=== PATIENT | female | born 2000 | race Caucasian/White ===

== ENCOUNTER 2024-05-28 18:30 | Outpatient (CLI) | payer OTHER ==
[2024-05-28 20:29] VITALS: BP 121/77; PULSE 86; RESP 16; TEMP 99.4
--- NOTE | 2024-07-04 02:07 | P.MSEPDOC ---
Presenting Problems - Arrival Data Date of Arrival on Unit: 05/28/24 Time of Arrival on Unit: 18:20 Mode of Transport: Ambulatory - Complaint OB-Reason for Admission/Chief Complaint: Possible Onset of Labor Comment: cx q4mins since 1400 Medical History - Information : 1 Para: 0 Term: 0 : 0 Abortions: Spontaneous or Elective: 0 Number of Living Children: 0 - Gestational Age Gestational Age by JOE (wks/days): 39 Weeks and 5 Days Review of Systems - Review of Systems Constitutional: No problems Breast: No problems ENT: No problems Cardiovascular: No problems Respiratory: No problems Gastrointestinal: No problems Genitourinary: No problems Musculoskeletal: No problems Neurological: No problems Skin: No problems Vital Signs - Temperature Temperature: 99.4 F Temperature Source: Temporal Artery Scan - Pulse Pulse Oximetery Pulse Rate: 86 Pulse Assessment Method: Pulse Oximetry - Respirations Respiratory Rate: 16 Oxygen Delivery Method: Room Air O2 Sat by Pulse Oximetry: 100 - Blood Pressure Right Arm Blood Pressure: 121/77 Blood Pressure Mean: 91 Blood Pressure Source: Automatic Cuff Medical Screen Scoring - Cervical Exam Dilation (cm): 1 Effacement (%): 60 Station: -3 Membranes: Intact - Uterine Contractions Frequency From (mins): 3 Frequency To (mins): 4 Duration From (seconds): 50 Duration To (seconds): 60 Intensity: Mild Resting: Soft to palpation - Assessment - Baby A Baseline FHR: 135 Heart Rate - NICHD Category: Category I (Normal) NST: Reactive Physician Notification - Physician Notified Physician Notified Date: 05/28/24 Physician Notified Time: 19:04 Physician: Kike Mejía New Order Received: Yes - Notification Comment Comment: Dr. Mejía on unit, report given on maternal c/o cx every 3-4mins rating 6/10. SVE . FHTs are now starting to become reactive but no reactive NST yet. POC to recheck cervix after 1hr. Dr. Mejía will be on unit waiting for an update. 1914 - Dr. Mejía gives orders for d/c if pt is still 1cm at 1930 Maternal Triage Index - Maternal Triage Index Presenting for scheduled procedure w/no complaint: No - Stat/Priority 1 Stat Priority 1: No - Urgent/Priority 2 Urgent Priority 2: No - Prompt/Priority 3 Prompt Priority 3: No - Non-Urgent/Priority 4 Non-Urgent Priority 4: Yes Criteria Met for Priority 4: 39 5/7wks, early labor s/s Disposition - Disposition OB Disposition: Discharge to home Discharge Date: 05/28/24 Discharge Time: 20:00 I agree with the RN Medical Screening Exam: Yes Physician's MSE Comment: I have neither seen nor examined the patient. Case reviewed; plan agreed upon as documented in EMR&OBIX.: Yes Diagnosis: RELATED CONDITIONS, UNSPECIFIED, THIRD TRIMESTER
== END 2024-05-28 20:00 | disposition home or self-care (01) ==
LOC: FBPOP 18:30
PROVIDERS: ATTEND Obstetrics & Gynecology
CPT/HCPCS: 59025; 99213

== ENCOUNTER 2024-06-01 06:19 | Inpatient (IN) | payer OTHER ==
[2024-06-01] MEDS ORDERED: miSOPROStoL 200 MCG TAB RECTAL PRN (07:58)
[2024-06-01] MEDS ORDERED: miSOPROStoL 200 MCG TAB PO PRN (07:58)
[2024-06-01] MEDS ORDERED: TERBUTALINE 1 MG/ML VIAL SQ PRN (07:58)
[2024-06-01] MEDS ORDERED: CARBOPROST TROMETHAMINE 250 MCG/ML 1 ML AMP IM PRN (07:58)
[2024-06-01] MEDS ORDERED: TRANEXAMIC 1,000 MG/100ML-NACL 1,000 MG in EMPTY BAG 1 BAG IV PRN (07:58)
[2024-06-01] MEDS ORDERED: OXYTOCIN 10 UNIT/ML 1 ML VIAL IM PRN (07:58)
[2024-06-01] MEDS ORDERED: METHYLERGONOVINE 0.2 MG/ML 1 ML AMP IM PRN (07:58)
--- NOTE | 2024-06-01 08:45 | P.HPOB ---
History of Present Illness H&P Date: 06/01/24 Chief Complaint: uterine contractions Ms. Horta is a 23 year old at 40 weeks and 1 day with EDC of 05/30/2024 by LMP consistent with 8 week US who presents with regular uterine contractions and is found to be in latent labor. The has been complicated by maternal mild intermittent asthma for which she uses albuterol very rarely. In addition, the patient has a history of anxiety and panic disorder for which she takes Lexapro and Buspar. The fetus is estimated to weigh in the 81%ile based on a 32 week growth US. work-up: blood type O positive, antibody screen negatie, rubella immune, VDRL non-reactive, HBsAg negative, HIV negative, HCV Ab negative, gonorrhea negative, chlamydia negative, 1 hour GTT wnl, GBS positive. s/p TDap. Past Medical History History of Any Multi-Drug Resistant Organisms: None Reported Smoking Status: Never smoker Medications and Allergies Home Medications Medication Instructions Recorded Confirmed Type Aspirin [Adult Low Dose Aspirin EC] 81 mg PO DAILY 05/28/24 06/01/24 History Escitalopram [Lexapro] 5 mg PO DAILY 05/28/24 06/01/24 History L.acidoph,Paracasei, B.lactis 1 each PO DAILY 05/28/24 06/01/24 History [Probiotic] Omeprazole 20 mg PO DAILY 05/28/24 06/01/24 History Vit No.179/Iron/Folic 1 each PO DAILY 05/28/24 06/01/24 History [ Tablet] Allergies Allergy/AdvReac Type Severity Reaction Status Date / Time bee pollen Allergy Anaphylaxis Verified 05/28/24 18:53 latex AdvReac Itching Verified 05/28/24 18:53 pollen extracts AdvReac Itching Verified 05/28/24 18:53 Exam Intake and Output 05/31/24 06/01/24 06/01/24 22:59 06:59 14:59 Other: Weight 99.79 kg Focused physical exam is performed. This is a healthy-appearing in no apparent distress. Breathing is non-labored. Abdomen is gravid and non-tender. Cervical exam is 3/90/-2 per OB RN. Extremities non-tender and non-edematous. heart tones are Category I and tocometer is graphing contractions every 3- 6 minutes. Assessment and Plan Assessment: 23 year old at 40 weeks and 1 day presenting in spontaneous labor Plan: Admit, clear liquid diet, PCN G for GBS ppx, pitocin per protocol if not making cerivcal change, AROM this afternoon, continuous EFM and tocometer.
[2024-06-01] MEDS: LACTATED RINGERS 1,000 ML IV SCH (09:11)
[2024-06-01] MEDS: PENICILLIN G POTASSIUM 5,000,000 UNIT in DEXTROSE 5% IN WATER 100 ML IVPB STA (09:12)
[2024-06-01 09:14] LABS: Basophils % (A) 0 %; Eosinophils # (A) 0.1 k/uL (0-0.7); Eosinophils % (A) 1 %; HCT 41.8 % (34.0-46.0); HGB 13.8 gm/dL (11.4-16.0); Lymphocytes # (A) 1.8 k/uL (1.0-4.8); Lymphocytes % (A) 15 %; MCH 28.1 pg (25.0-35.0); MCV 85.4 fL (80.0-100.0); Mean Platelet Volume 7.3; Monocytes # (A) 0.5 k/uL (0-1.0); Monocytes % (A) 4 %; Neutrophils # (A) 9.5 k/uL (1.3-7.7); Neutrophils % (A) 78 %; Platelet Count 355 k/uL (150-450); RDW 13.5 % (11.5-15.5); WBC 12.1 k/uL (3.8-10.6)
[2024-06-01 09:36] VITALS: RESP 16
[2024-06-01] MEDS: NALBUPHINE 10 MG/ML (10 ML MDV) IV PRN (11:16)
[2024-06-01] MEDS: PENICILLIN G POTASSIUM 2,500,000 UNIT in DEXTROSE 5% IN WATER 100 ML IVPB SCH (13:06)
[2024-06-01] MEDS: OXYTOCIN 30 UNITS/500 ML NS 30 UNIT in SALINE 1 500ML.BAG IV SCH (15:20)
[2024-06-01] MEDS ORDERED: SODIUM CHLORIDE 0.9% 250 ML BAG ONE (16:07)
[2024-06-01] MEDS ORDERED: fentaNYL (PF) 50 MCG/ML 5 ML AMP ONE (16:07)
[2024-06-01] MEDS ORDERED: ROPIVACAINE 5 MG/ML 30 ML VIAL ONE (16:07)
[2024-06-01] MEDS ORDERED: ROPIVACAINE 225 MG, fentaNYL (PF). 450 MCG in SODIUM CHLORIDE 0.9% 171 ML EPIDURAL ONE (19:06)
[2024-06-01] MEDS ORDERED: LANOLIN CREAM 1 GM TUBE TOPICAL PRN (22:19)
[2024-06-01] MEDS ORDERED: HYDROCORTISONE 2.5% RECTAL CREAM 30 GM TUBE RECTAL PRN (22:19)
[2024-06-01] MEDS ORDERED: SIMETHICONE 80 MG CHEWABLE PO PRN (22:19)
[2024-06-01] MEDS ORDERED: diphenhydrAMINE 25 MG CAP PO PRN (22:19)
[2024-06-01] MEDS ORDERED: ZOLPIDEM 5 MG TAB PO PRN (22:19)
[2024-06-01] MEDS ORDERED: diphenhydrAMINE 50 MG/ML 1 ML VIAL IVP PRN ×2 (22:19)
[2024-06-01] MEDS ORDERED: diphenhydrAMINE 50 MG CAP PO PRN (22:19)
--- NOTE | 2024-06-01 22:19 | P.PROBDLV ---
Vaginal Delivery Note - . Vaginal Delivery Note: DATE OF SERVICE: 06/01/2024 PROCEDURE: Normal Vaginal Delivery ATTENDING: Dr. Tere Sauer MD ESTIMATED BLOOD LOSS: 200 mL FINDINGS: VFI, Apgars 7/8. Weight 7 pounds and 8 ounces (3395 grams) PROCEDURE: Ms. Horta is a 23 year old at 40 weeks and 2 days presenting to labor and delivery for spontaneous labor. The has been uncomplicated. AROM was performed at 1145 revealing initially clear fluid. The patient received epidural anesthesia per her request. Pitocin augmentation was started. Meconium stained fluid was detected in active labor. The patient was completely dilated at 8. She pushed effectively with Category I heart tones. She brought the head to a crown and with the next few pushes delivered the head over an intact perineum followed by the shoulders and body without difficulty. A viable female was delivered at 2150. The infant was placed on the maternal abdomen and bulb suctioned. The infant was noted to be spontaneously crying. Cord was clamped and cut after a 30-second delay. The was handed off to the pediatric team. Placenta was delivered whole with gentle cord traction at 2153. Oxytocin was started to facilitate uterine tone. Uterine fundus was found to be firm and below the umbilicus upon fundal massage. Thorough examination of the cervix, vagina, periurethral area, and perineum revealed a superficial right labia majora laceration and a small second degree laceration. These areas were infiltrated with lidocaine and repaired with 3-0 and 2-0 Vicryl respectively. The patient is stable and allowed to begin the bonding process.
[2024-06-01] MEDS ORDERED: OXYTOCIN 30 UNITS/500 ML NS 30 UNIT in SALINE 1 500ML.BAG IV SCH (22:30)
[2024-06-02] MEDS: BENZOCAINE/MENTHOL SPRAY 1 GM/SPRAY AEROSOL TOPICAL PRN (06:27)
[2024-06-02] MEDS: LIDOCAINE 0.5% (PF) 5 MG/ML (50 ML SDV) SQ PRN (06:30)
[2024-06-02 06:59] LABS: Basophils % (A) 0 %; Eosinophils # (A) 0.2 k/uL (0-0.7); Eosinophils % (A) 1 %; HCT 36.7 % (34.0-46.0); HGB 12.1 gm/dL (11.4-16.0); Lymphocytes # (A) 1.6 k/uL (1.0-4.8); Lymphocytes % (A) 12 %; MCH 28.2 pg (25.0-35.0); MCHC 32.9 g/dL (31.0-37.0); MCV 85.8 fL (80.0-100.0); Mean Platelet Volume 7.4; Monocytes # (A) 0.7 k/uL (0-1.0); Monocytes % (A) 5 %; Neutrophils # (A) 10.3 k/uL (1.3-7.7); Neutrophils % (A) 79 %; Platelet Count 295 k/uL (150-450); RBC 4.28 m/uL (3.80-5.40); RDW 13.5 % (11.5-15.5)
[2024-06-02] MEDS: IBUPROFEN 600 MG TAB PO PRN (08:28)
--- NOTE | 2024-06-02 08:42 | P.PNOBGVD ---
Subjective - Subjective Principal diagnosis: s/p vaginal delivery Interval history: The patient is doing well this morning and had no acute events overnight. She has no complaints this morning. She reports minimal lochia, passing flatus, voiding without difficulty, ambulating, and eating/drinking without nausea or vomiting. She is her without difficulty. She denies chest pain, shortness of breathing, fevers, or chills overnight. She denies pain or swelling in the legs. Patient reports: Reports appetite normal, Reports voiding normally, Reports pain well controlled, Reports ambulating normally : doing well, nursing well Objective - Latest Vital Signs Latest vital signs: Vital Signs Temp Pulse Resp BP Pulse Ox 06/02/24 08:00 99.1 F 101 H 16 112/74 95 06/02/24 04:00 98.3 F 95 16 111/70 97 06/02/24 01:34 16 06/02/24 00:14 98.3 F 88 16 118/67 06/01/24 23:55 88 16 125/70 06/01/24 23:39 83 16 116/67 06/01/24 23:24 82 16 108/65 06/01/24 23:09 98.2 F 93 16 109/66 06/01/24 22:54 73 16 106/59 06/01/24 22:24 98.4 F 87 16 125/75 06/01/24 22:15 98.4 F 88 16 120/70 06/01/24 09:32 97.8 F 82 16 113/71 98 Intake and Output 06/01/24 06/02/24 06/02/24 22:59 06:59 14:59 Intake Total 185.667 Output Total 400 350 Balance -214.333 -350 Intake: Intake, IV Titration 185.667 Amount Oxytocin 30 Units/500 ml 185.667 Ns 30 unit In Saline 1 500ml.bag @ Per Protocol IV .Q0M [facility] Rx#:[id number] Output: Urine 200 Estimated Blood Loss 200 Output, Quantitative 350 Blood Loss Other: # Voids 1 - Exam Extremities: Present: normal Abdomen: Present: normal appearance, soft Uterus: Present: normal, firm - Labs Labs: Abnormal Lab Results - Last 24 Hours (Table) 06/01/24 06/02/24 Range/Units 09:02 06:37 WBC 12.1 H 13.0 H (3.8-10.6) k/uL Neutrophils # 9.5 H 10.3 H (1.3-7.7) k/uL Assessment and Plan Assessment: 23 year old now PPD#1 s/p Plan: Patient meeting all milestones appropriately. Continue inpatient management today and anticipate discharge home tomorrow morning on POD#2.
[2024-06-02] MEDS: SENNOSIDES-DOCUSATE SODIUM 1 EACH TAB PO SCH (09:43)
[2024-06-02] MEDS: ACETAMINOPHEN TAB 325 MG TAB PO PRN (14:14)
--- NOTE | 2024-06-03 08:16 | P.DS ---
Providers Date of admission: 06/01/24 07:46 Expected date of discharge: 06/03/24 Attending physician: Tere Sauer MD Primary care physician: Stated None Hospital Course: Ms. Horta is a 23 year old PPD#2 s/p normal spontaneous vaginal delivery. The patient is doing well this morning and had no acute events overnight. She has no complaints this morning. She reports minimal lochia, passing flatus, voiding without difficulty, ambulating, and eating/drinking without nausea or vomiting. doing well at bedside. She denies chest pain, shortness of breathing, fevers, or chills overnight. She denies pain or swelling in the legs. restrictions are reviewed with the patient including pelvic rest for 6 weeks. The patient is encouraged to call the office if she experiences any heavy bleeding, foul-smelling discharge, breast complaints, or any if she has any other concerns. She will follow up in the office with in 6 weeks for exam. She plans to use Motrin and Tylenol as needed OTC. All questions are answered. Assessment: 23 year old now PPD#1 s/p Patient Condition at Discharge: Good Plan - Discharge Summary New Discharge Prescriptions: No Action L.acidoph,Paracasei, B.lactis [Probiotic] 1 each PO DAILY Escitalopram [Lexapro] 5 mg PO DAILY Vit No.179/Iron/Folic [ Tablet] 1 each PO DAILY Omeprazole 20 mg PO DAILY Aspirin [Adult Low Dose Aspirin EC] 81 mg PO DAILY Discharge Medication List Aspirin [Adult Low Dose Aspirin EC] 81 mg PO DAILY 05/28/24 [History] Escitalopram [Lexapro] 5 mg PO DAILY 05/28/24 [History] L.acidoph,Paracasei, B.lactis [Probiotic] 1 each PO DAILY 05/28/24 [History] Omeprazole 20 mg PO DAILY 05/28/24 [History] Vit No.179/Iron/Folic [ Tablet] 1 each PO DAILY 05/28/24 [History] Follow up Appointment(s)/Referral(s): Tere Sauer MD [STAFF PHYSICIAN] - 07/14/24 1:15 pm Activity/Diet/Wound Care/Special Instructions: Instructions 1. Do not begin any exercise program for 3 weeks. 2. Do not resume sexual relations for 6 weeks or longer if uncomfortable. 3. You may take tub baths or showers at any time. 4. You may use tampons if desired after 6 weeks. 5. Keep any areas repaired with stitches clean and dry. 6. If you are not nursing, wear a good fitting, supportive bra during the day and limit fluid intake for at least 1 week to prevent breast engorgement. 7. Call the office, , within the next week to make appointment for your 6 week checkup if it has not already been made. 8. Report any of the following occurrences to the doctor promptly: a. Heavy, excessive bleeding b. Chills, fever c. Burning or frequency of urination d. Pain or redness and breasts if nursing e. Increasing pain or swelling of vulva (stitches). In addition to the above instructions, the following additional should be followed: 1. No heavy lifting or straining (exercising) until after 6 week checkup. 2. Keep abdominal incision clean and dry: You may wear a dressing if more comfortable. 3. Make office appointment for 2 weeks after delivery date. Discharge Disposition: HOME SELF-CARE
[2024-06-03 08:17] VITALS: BP 118/50; PULSE 86; TEMP 98
== END 2024-06-03 12:30 | disposition home or self-care (01) | DRG 807 ==
LOC: FBPOP 06:19 → 4FBP 07:46
PROVIDERS: ADMIT Obstetrics & Gynecology; ATTEND Obstetrics & Gynecology
PROC: 10907ZC Drainage of Amniotic Fluid, Therapeutic from Products of Conception, Via Natural or Artificial Opening (ICD-10-PCS; principal; 2024-06-01)
PROC: 0KQM0ZZ Repair Perineum Muscle, Open Approach (ICD-10-PCS; principal; 2024-06-01)
PROC: 0UQMXZZ Repair Vulva, External Approach (ICD-10-PCS; principal; 2024-06-01)
PROC: 10E0XZZ Delivery of Products of Conception, External Approach (ICD-10-PCS; principal; 2024-06-01)
DX: O48.0 Post-term pregnancy (principal); O99.52 Diseases of the respiratory system complicating childbirth; J45.20 Mild intermittent asthma, uncomplicated; O99.344 Other mental disorders complicating childbirth; O70.1 Second degree perineal laceration during delivery; F41.0 Panic disorder [episodic paroxysmal anxiety]; O77.0 Labor and delivery complicated by meconium in amniotic fluid; O99.824 Streptococcus B carrier state complicating childbirth; Z79.899 Other long term (current) drug therapy; Z79.82 Long term (current) use of aspirin; Z91.040 Latex allergy status; Z3A.40 40 weeks gestation of pregnancy; Z37.0 Single live birth
CPT/HCPCS: 59025; 85025; 86850; 86900; 86901; 99213